=== PATIENT | male | born 1950 | race Caucasian/White ===

== ENCOUNTER 2020-09-10 07:40 | Outpatient (CLI) | payer MEDICARE, SELFPAY ==
--- NOTE | 2020-09-10 12:39 | WPDPFTINT ---
PFT Procedure Performed PFT Procedure Performed Plethysmography (Lung Vol) Diffusing Cap (DLCO) Flow Vol Loop Spirometry w/o Bronchodil PFT Interpretation This is a pulmonary function test with spirometry, plethysmography and diffusing capacity. The test was performed and results interpreted in accordance with the 2019 and 2005 ATS/ERS Task Force guidelines respectively using the Global Lung Function Initiative-2012 reference equations. Patient demonstrated good effort and cooperation. Reproducibility criteria were met. The quality of the spirometry maneuver was Grade A. Findings: Spirometry: there is decreased maximal expiratory airflow at low lung volumes with a concave expiratory flow tracing. The FVC is 3.28 L, 70% predicted. The FEV1 is 2.23 L, 63% predicted. The FEV1: FVC ratio is 68%. Plethysmography: The total lung capacity is 6.48 L, 87% predicted. The functional residual capacity is 3.31 L, 84% predicted. The residual volume is 2.65 L, 106% predicted. Diffusing capacity: The absolute diffusion capacity is 15.8, 57% predicted. The diffusing capacity corrected for alveolar volume is 3.11, 80% predicted. Impression: There is a moderate obstructive abnormality. The lung volumes are normal. The absolute diffusing capacity is moderately decreased but normalizes when corrected for alveolar volume. There are no prior studies for comparison
== END 2020-09-10 07:41 | disposition home or self-care (01) ==
PROVIDERS: PCP Internal Medicine; Visit Provider Internal Medicine
DX: R06.2 Wheezing (principal); R94.2 Abnormal results of pulmonary function studies
CPT/HCPCS: 94375; 94726; 94729